=== PATIENT | male | born 1990 | race Two or more races ===

== ENCOUNTER 2020-06-13 01:37 | Emergency (ER) | payer OTHER ==
[~2020-06-13] VITALS: Ht 160 cm; Wt 68.1 kg
[2020-06-13] MEDS ORDERED: IBUPROFEN 800 MG TABLET PO ONE (02:30)
[2020-06-13] MEDS ORDERED: METHOCARBAMOL 750 MG TABLET PO ONE (02:30)
[2020-06-13 02:40] VITALS: BP 127/70
[2020-06-13] MEDS ORDERED: METHOCARBAMOL 750 MG TABLET ONE (02:40)
[2020-06-13] MEDS ORDERED: IBUPROFEN 800 MG TABLET ONE (02:40)
--- NOTE | 2020-06-13 02:43 | NUR ---
PATIENT CLEARED FOR DISCHARGE; NO NOTED ACUTE DISTRESS. PATIENT VERABLIZED UNDERSTANDING OF SELF CARE AND FOLLOW UP CARE. AMBULATORY TO DISCHARGE WITHOUT COMPLICATIONS WT[facility] BELONGINGS.
== END 2020-06-13 02:45 | disposition home or self-care (01) ==
LOC: ED 02:07
DX: S39.012A Strain of muscle, fascia and tendon of lower back, initial encounter (principal); F17.200 Nicotine dependence, unspecified, uncomplicated; V49.09XA Driver injured in collision with other motor vehicles in nontraffic accident, initial encounter; Y93.89 Activity, other specified; Y92.89 Other specified places as the place of occurrence of the external cause; Y99.8 Other external cause status
CPT/HCPCS: 99283